=== PATIENT | male | born 1985 | race African-American/Black ===

== ENCOUNTER 2020-07-16 18:42 | Emergency (ER) | payer OTHER ==
[~2020-07-16] VITALS: Ht 175.3 cm; Wt 70.3 kg
[~2020-07-16 18:42] MED LIST: ALLEGRA ALLERG180 MG PO; AMOXICILLIN500 M1 PO; AUGMENTIN 875875 MG PO; HYCET 7.5 MG-3473 ML PO; NOHOMEMEDICATIONS; NORCO 5-325 TA1 EACH PO; PERCOCET 5-3251 EACH PO; PREDNISONE 20 M20 MG PO; TOBRAMYCIN SULFA5 ML OP
[2020-07-16 20:46] VITALS: BP 129/92
== END 2020-07-16 20:47 | disposition home or self-care (01) ==
LOC: ER 18:42
DX: S02.2XXA Fracture of nasal bones, initial encounter for closed fracture (principal); S16.1XXA Strain of muscle, fascia and tendon at neck level, initial encounter; S09.8XXA Other specified injuries of head, initial encounter; V44.5XXA Car driver injured in collision with heavy transport vehicle or bus in traffic accident, initial encounter; Y93.I9 Activity, other involving external motion; Y92.488 Other paved roadways as the place of occurrence of the external cause; Y99.8 Other external cause status

== ENCOUNTER 2020-07-18 17:51 | Emergency (ER) | payer OTHER, BC ==
[~2020-07-18] VITALS: Ht 175.3 cm; Wt 70.3 kg
[2020-07-18 17:55] VITALS: BP 138/83
== END 2020-07-18 18:20 | disposition home or self-care (01) ==
LOC: ER 17:51
DX: S06.0X0A Concussion without loss of consciousness, initial encounter (principal); V49.88XA Car occupant (driver) (passenger) injured in other specified transport accidents, initial encounter; Y93.89 Activity, other specified; Y92.89 Other specified places as the place of occurrence of the external cause; Y99.9 Unspecified external cause status